=== PATIENT | female | born 1985 | race Caucasian/White ===

== ENCOUNTER 2017-05-22 07:20 | Inpatient (IN) | payer BC ==
[~2017-05-22 07:20] MED LIST: Buffered Lidocaine 0.9% SYRIN* 5 ML/SYR SYRINGE ONE
[2017-05-22] MEDS ORDERED: ceFAZolin 2 GM PREMIX (*) 50 ML IVPB ONE (08:06)
[2017-05-22] MEDS ORDERED: Morphine PF AMP (0.5MG/ML)* 5 MG/10 ML AMP ONE (08:29)
[2017-05-22] MEDS ORDERED: Ketorolac INJ* 30 MG/ML 1 ML VIAL ONE (08:34)
[2017-05-22] MEDS ORDERED: Ondansetron INJ* 2 MG/ML VIAL ONE (08:34)
[2017-05-22] MEDS ORDERED: OXYTOCIN* 10 UNITS/ML 1 ML VIAL ONE (08:34)
[2017-05-22] MEDS ORDERED: Phenylephrine IV* 40 MCG/ML 10 ML SYRINGE ONE (09:16)
[2017-05-22] MEDS ORDERED: EPHEDrine (Pressors)* 50 MG/ML VIAL ONE (09:16)
[2017-05-22] MEDS ORDERED: Glycerin ADULT SUPP PR PRN (10:09)
[2017-05-22] MEDS ORDERED: Witch Hazel PAD* JAR TOPICAL PRN (10:09)
[2017-05-22] MEDS ORDERED: HYDROmorphone* 1 MG/ML 1 ML CARPUJECT IV PRN (10:11)
[2017-05-22] MEDS ORDERED: oxyCODONE/Acetamin 5/325 MG* TAB PO PRN ×2 (10:11→10:17)
[2017-05-22] MEDS ORDERED: Acetaminophen IV 1GM/100ML * 100 ML IVPB ONE (10:11)
[2017-05-22] MEDS ORDERED: Ondansetron INJ* 2 MG/ML VIAL IV PRN (10:14)
[2017-05-22] MEDS ORDERED: Naloxone* 0.4 MG/ML 1 ML VIAL IV PRN (10:14)
[2017-05-22] MEDS ORDERED: Nalbuphine* 20 MG/ML 1 ML VIAL IV PRN (10:14)
[2017-05-22] MEDS ORDERED: Ibuprofen TAB* 600 MG PO SCH ×3 (11:00→16:30)
[2017-05-22] MEDS: Docusate CAP* 100 MG PO SCH ×2 (14:05→21:24)
[2017-05-22] MEDS: Simethicone CHEW TAB* 80 MG PO SCH ×3 (14:06→21:24)
[2017-05-22] MEDS: oxyCODONE/Acetamin 5/325 MG* TAB PO PRN ×2 (14:09→20:14)
[2017-05-22] MEDS: Ibuprofen TAB* 600 MG PO SCH ×2 (17:55→22:38)
[2017-05-23] MEDS: oxyCODONE/Acetamin 5/325 MG* TAB PO PRN ×5 (04:44→22:57)
[2017-05-23] MEDS: Ibuprofen TAB* 600 MG PO SCH ×4 (04:45→22:57)
--- NOTE | 2017-05-23 05:39 | OP ---
DATE OF OPERATION: 05/22/17 - ROOM #[id number] DATE OF : 83 SURGEON: Yusef Osorio MD DAMAGED FREIGHT INSPECTOR: Opal Harrell LM. ANESTHESIOLOGIST: Dr. Yates. ANESTHESIA: Spinal. PRE-OP DIAGNOSIS: 39 weeks' gestation with history of 2 prior C-sections. POST-OP DIAGNOSIS: 39 weeks' gestation with history of 2 prior C-sections. OPERATIVE PROCEDURE: Repeat low transverse section. ESTIMATED BLOOD LOSS: 800 cc. URINE OUTPUT: 100 cc. INTRAVENOUS FLUIDS: 1900 cc lactated Ringer's. MATERIALS TO LAB: Cord blood. INDICATIONS: This patient is a 32-year-old 3, para 2, who had had her 2 prior sections at [facility]. The patient was followed during her here and was hoping to have a trial of labor, but never went into labor. She was admitted today for her scheduled repeat section. FINDINGS: Normal appearing uterus, fallopian tubes, and ovaries. Fairly large amount of scar tissue from the prior surgeries. In addition, the lower uterine segment was extremely thin. Delivery was productive of a female , weighing 8 pounds 8 ounces with the Apgars of 9 and 9. COMPLICATIONS: None. DESCRIPTION OF PROCEDURE: The risks, benefits, and alternatives were described to the patient, and informed consent was obtained. The patient was taken to the operating room with IV running, where spinal anesthesia was induced and found to be adequate. The patient was prepped and draped in normal sterile fashion in the dorsal supine position with a leftward tilt. A Pfannenstiel skin incision was made with a scalpel through the patient's previous incision. This was carried down to the underlying fascia using the scalpel. The fascia was scored in the midline, and the incision was extended using Bravo scissors. The fascia was dissected off the underlying rectus muscles using blunt and sharp dissection. The rectus muscles were in the midline, requiring extensive dissection. The peritoneum was then entered bluntly during this dissection. A bladder blade was placed. A low transverse uterine incision was then made with the scalpel. This was carried down to the amniotic membranes. The membranes were then ruptured, productive of clear fluid. The uterine incision was extended using blunt traction. The head was elevated to the level of the incision, and, with fundal pressure, the head delivered without difficulty. The shoulders then were also both delivered and the body followed. The infant had excellent tone and cried immediately on delivery. The cord was doubly clamped and cut. The infant was then handed to the awaiting radio tower technician. Cord blood was collected. The placenta was delivered with manual extraction. The uterus was then exteriorized and cleared of all clots and debris. The uterine incision was then reapproximated using 0 Polysorb in a running-locked fashion. The lower uterus was extremely thin, so care was taken to avoid tearing it. A second layer of imbricating 0 Polysorb sutures was then also placed for good hemostasis. The posterior cul-de-sac was irrigated with saline. The uterus was then returned to the abdomen. The incision was reinspected and still noted to be hemostatic. The peritoneum was closed with 3- 0 Polysorb in a running fashion. The fascia was closed with 0 Polysorb in a running fashion. The subcutaneous tissues were copiously irrigated and made hemostatic using the Bovie. The skin was then closed with 4-0 Monocryl in a subcuticular stitch. Mastisol and steristrips were then applied. A sterile bandage was then placed over the incision. The patient tolerated the procedure well. Sponge, lap, and needle counts were correct x2. [id number] #: [id number] [facility]ITALMindi
[2017-05-23] MEDS: Simethicone CHEW TAB* 80 MG PO SCH ×3 (08:30→17:30)
[2017-05-23 08:53] LABS: Add Diff/Slide Review? Slide Review Added; Comments Flag Yes; Hematocrit 26 % (35-47); Hemoglobin 8.5 g/dl (12.0-16.0); Mean Corpuscular HGB Conc 33 g/dl (31-36); Mean Corpuscular Hemoglobin 30 pg (27-31); Mean Corpuscular Volume 90 fL (80-97); Red Blood Count 2.86 10^6/ul (4.0-5.4); Red Cell Distribution Width 14 % (10.5-15); White Blood Count 13.2 10^3/ul (3.5-10.8)
[2017-05-23] MEDS: Docusate CAP* 100 MG PO SCH ×2 (08:54→14:00)
[2017-05-23] MEDS: Ferrous Gluconate TAB* 324 MG TAB PO SCH (08:57)
[2017-05-23 09:16] LABS: Mean Platelet Volume 10 um3 (7.4-10.4)
[2017-05-24] MEDS: Ferrous Gluconate TAB* 324 MG TAB PO SCH ×2 (00:35→07:46)
[2017-05-24] MEDS: Simethicone CHEW TAB* 80 MG PO SCH (00:35)
[2017-05-24] MEDS: Docusate CAP* 100 MG PO SCH ×2 (00:36→07:49)
[2017-05-24] MEDS: oxyCODONE/Acetamin 5/325 MG* TAB PO PRN ×2 (03:52→07:46)
[2017-05-24] MEDS: Ibuprofen TAB* 600 MG PO SCH (06:57)
[2017-05-24 08:19] VITALS: BP 109/71
== END 2017-05-24 10:38 | disposition home or self-care (01) | DRG 540 ==
LOC: MCHOB 07:20
PROVIDERS: ADMIT Obstetrics & Gynecology; ATTEND Obstetrics & Gynecology
PROC: 10D00Z1 Extraction of Products of Conception, Low, Open Approach (ICD-10-PCS; principal; 2017-05-22 08:30)
DX: O34.211 Maternal care for low transverse scar from previous cesarean delivery (principal); D64.9 Anemia, unspecified; O48.0 Post-term pregnancy; O90.81 Anemia of the puerperium; Z3A.40 40 weeks gestation of pregnancy; Z37.0 Single live birth
CPT/HCPCS: 36415; 85025; A9270-GY; J0690; J1885; J2405; J2590